=== PATIENT | male | born 1945 | race Caucasian/White ===

== ENCOUNTER → 2016-11-09 | Outpatient (CLI) | payer MEDICARE, OTHER | END | disposition home or self-care (01) | LOC: GMA 14:01 | PROVIDERS: ATTEND Nurse Practitioner Acute Care | DX: R10.13 Epigastric pain (principal) ==

== ENCOUNTER → 2016-11-11 | Outpatient (CLI) | payer MEDICARE, OTHER ==
--- NOTE | 2016-11-11 13:09 | US ---
EXAM DESCRIPTION: Ultrasound Abdomen,Complete CLINICAL HISTORY: EPIGASTRIC PAIN COMPARISON: None Available. TECHNIQUE: Complete abdominal ultrasound FINDINGS: The liver is at the upper limits of normal in size at 15.9 cm. It demonstrates normal echogenicity. There is no focal hepatic mass. The gallbladder contains no sludge, calculus, or polyps. The gallbladder wall measures 2 mm. The common bile duct measures 3 mm. Visualized portions of the pancreas are unremarkable. Portions of the body and tail are not well seen due to bowel gas. The spleen is normal in size, shape, and echotexture. The kidneys are normal in size, shape, and echotexture. The IVC and the proximal aorta are unremarkable. IMPRESSION: 1. Unremarkable ultrasound of the upper abdomen. Electronically signed by: Emery Vides MD 11/11/2016 1:08 PM CDT
== END | disposition home or self-care (01) ==
LOC: US 08:50
PROVIDERS: ATTEND Nurse Practitioner Acute Care
DX: R10.13 Epigastric pain (principal)

== ENCOUNTER → 2016-11-17 | Outpatient (CLI) | payer MEDICARE, OTHER ==
--- NOTE | 2016-11-17 10:12 | CT ---
EXAM DESCRIPTION: Abdoment/Pelvis w/o Contrast CLINICAL HISTORY: 71 years,Male,ABDOMINAL PAIN COMPARISON: None TECHNIQUE: Multiple axial helical tomographic images were obtained of the abdomen and pelvis with out IV or oral contrast and then reconstructed sagittal coronal plane FINDINGS: The unenhanced liver is unremarkable. The spleen is unremarkable. The Pancreas is unremarkable. The adrenal glands are unremarkable. There are two tiny stones in the right kidney mid and lower pole up to 2 mm at most in size nonobstructing. The kidneys are unremarkable. The gallbladder is unremarkable. No free air free fluid masses or adenopathy. The included bowel demonstrates some stool throughout the colon otherwise unremarkable The lung bases are unremarkable. The surrounding soft tissues are unremarkable. The bony elements age appropriate . IMPRESSION: Two tiny new stones lower pole right kidney nonobstructing. Stool throughout the colon, possible constipation. Electronically signed by: Jeff Tejada MD 11/17/2016 10:11 AM CDT
== END | disposition home or self-care (01) ==
LOC: CT 07:45
PROVIDERS: ATTEND Internal Medicine Gastroenterology
DX: R10.84 Generalized abdominal pain (principal)

== ENCOUNTER 2016-12-23 05:45 | Day surgery (SDC) | payer MEDICARE, OTHER ==
[2016-12-23] MEDS ORDERED: LACTATED RINGERS 1,000 ML ONE (06:13)
--- NOTE | 2016-12-23 09:24 | OP ---
DATE OF PROCEDURE: 12/23/16 PREPROCEDURE DIAGNOSIS: 1. Change in bowel habits. 2. Abdominal discomfort. POSTPROCEDURE DIAGNOSIS: 1. Spasm in sigmoid and descending colon, moderately severe. 2. Mild diverticular disease. 3. Ascending colon polyp. PROCEDURE: 1. Colonoscopy to the terminal ileum. 2. Polypectomy. SURGEON: Winston Barrios MD. ANESTHESIA: Monitored anesthesia care. FINDINGS: Digital exam showed normal anal canal with no rectal masses and normal sized prostate. Colon preparation was adequate for examination. The entire colon can be examined to fairly good advantage. Significant spasm in the sigmoid and descending colon area. Opened up with air distention. Mild to moderate diverticulosis in the sigmoid colon area. Very small diverticular openings only. No evidence of stricture, ulceration, or inflammation. Both hepatic and splenic flexures appeared normal. The ascending colon and cecum were reached. The ileocecal valve was visualized. The terminal ileum was intubated. The terminal ileum appeared normal. The cecum was unremarkable. There was a 1.2 cm sized polyp present in the mid ascending colon, longitudinal appearance, sessile. The polyp was removed in two pieces in piecemeal technique. Adequate hemostasis, no bleeding. The polyp was retrieved for pathologic exam. The patient tolerated the procedure well. Reexamination on scope withdrawal showed no abnormality. Total scope withdrawal time was 9 minutes. FINAL IMPRESSION: 1. Spasm in the sigmoid and descending colon. 2. Incidental colonic polyp in the ascending colon, removed, benign. RECOMMENDATION: Surveillance colonoscopy in five years. Colon spasm and minimal diverticular disease may account for change in bowel habits. Increase dietary fiber with Metamucil on daily basis. #[id number] cc: MD Winston Wyatt MD [facility]
[2016-12-23 09:26] VITALS: BP 126/75; TEMP 97.5; O2SAT 99
[2016-12-23] MEDS ORDERED: PROPOFOL 200 MG/20 ML VIAL IV ONE (12:00)
== END 2016-12-23 09:20 | disposition home or self-care (01) ==
LOC: AMB 05:45
PROVIDERS: ATTEND Internal Medicine Gastroenterology
DX: R19.4 Change in bowel habit (principal); R10.13 Epigastric pain; D12.2 Benign neoplasm of ascending colon; K57.30 Diverticulosis of large intestine without perforation or abscess without bleeding; K58.9 Irritable bowel syndrome, unspecified; K21.9 Gastro-esophageal reflux disease without esophagitis; E66.3 Overweight; Z68.25 Body mass index [BMI] 25.0-25.9, adult; Z88.8 Allergy status to other drugs, medicaments and biological substances; Z79.899 Other long term (current) drug therapy
CPT/HCPCS: 00810; 45380; 88305; J3490; J7120

== ENCOUNTER → 2018-07-18 | Outpatient (CLI) | payer MEDICARE, OTHER ==
--- NOTE | 2018-07-18 15:28 | MRI ---
EXAM DESCRIPTION: Lumbar Spine w/o Contrast : Magnetic Resonance Imaging. CLINICAL HISTORY: LUMBAR DISC DISEASE COMPARISON: MRI lumbar spine without contrast 01/12/2013. TECHNIQUE: Multiplanar, multiple standard sequences, non contrast MRI, lumbar spine. FINDINGS: L5-S1: Minimal disc desiccation. Disc space preserved. Posterior elements unremarkable. 2 mm posterior midline disc bulge. Mild canal and bilateral foraminal narrowing. Stable since the prior study. Facets are negative. L4-5: Disc desiccation and mild with disc space preserved. Bilateral flavum ligament hypertrophy. AP canal 10 mm. Asymmetric disc bulge into the left foramen stable since the prior study with moderate narrowing. Mild right foraminal narrowing. Facets are negative. L3-4: Mild disc desiccation with disc space preserved. 3 mm posterior broad-based bulge abutting the thecal sac and the descending L4 nerve roots bilaterally. Bilateral flavum ligament hypertrophy with negative facets. AP canal diameter 8 mm. Mild bilateral foraminal narrowing. L2-3: Disc desiccation with disc space minimally decreased. Posterior broad-based 3 mm disc bulge. Anterior disc bulge with endplate ridging bilateral flavum ligament hypertrophy and mild facet arthrosis. Moderate canal narrowing. Bilateral foramina are patent. L1-2: Normal signal in the disc with disc space preserved. Posterior elements unremarkable. Canal and foramina are patent. T12-L1: Normal signal in the disc with disc space preserved. Canal and foramina are patent. Posterior elements unremarkable. Conus terminates at this level. Anatomic alignment and curvature of the spine Paravertebral soft tissues negative.. Otherwise normal marrow signal in the remaining vertebral bodies and the posterior elements. Vertebral bodies are not compressed at any level. IMPRESSION: 1. Mild disc desiccation L3-4 and posterior bulge. Flavum ligament hypertrophy. Mild central canal stenosis. This has progressed since the prior study. 2. Borderline mild canal stenosis L4-5. Asymmetric disc bulge into the left foramen. Stable since the prior study. Electronically signed by: Kennedy Tatum MD 07/18/2018 3:27 PM [facility]
== END ==
LOC: MRI 10:46
PROVIDERS: ATTEND Family Medicine
DX: M51.27 Other intervertebral disc displacement, lumbosacral region (principal); M51.36 Other intervertebral disc degeneration, lumbar region; Z12.5 Encounter for screening for malignant neoplasm of prostate
CPT/HCPCS: 72148; G0103

== ENCOUNTER → 2018-08-18 | Outpatient (CLI) | payer MEDICARE, OTHER ==
--- NOTE | 2018-08-18 11:22 | RAD ---
EXAM DESCRIPTION: Pelvis CLINICAL HISTORY: 73 years Male, M25.551 RIGHT HIP PAIN COMPARISON: Radiograph of the pelvis dated 06/25/2016. TECHNIQUE: AP radiograph of the pelvis was performed. FINDINGS: The pelvic ring appears grossly intact on this single AP radiograph. No acute fracture or dislocation. Bilateral sacroiliac joints appear normal. Mild degenerative changes are identified in the bilateral hip joints. The visualized lumbo-sacral spine demonstrates mild degenerative changes. IMPRESSION: Single AP radiograph of the pelvis demonstrates grossly intact pelvic ring. Mild bilateral hip osteoarthritis. Electronically signed by: Arlet Archibald MD 08/18/2018 11:20 AM [facility]
== END ==
LOC: RAD 10:01
PROVIDERS: ATTEND Orthopaedic Surgery
DX: M16.0 Bilateral primary osteoarthritis of hip (principal); M25.551 Pain in right hip

== ENCOUNTER → 2019-01-16 | Outpatient (CLI) | payer MEDICARE, OTHER ==
--- NOTE | 2019-01-16 14:43 | MRI ---
MRI right hip without contrast INDICATION: Hip pain muscle rupture TECHNIQUE: Noncontrast MR imaging right hip standard protocol FINDINGS: No regional tendon rupture. No osteonecrosis or fracture. Mild degenerative change anterior superior labrum. Ill-defined ligament teres indicating degeneration. Mild interstitial partial tear and tendinosis of the junction of the gluteus minimus and medius tendons. IMPRESSION: Mild degenerative change glenoid labrum right hip Mild tendinopathy and low-grade partial tear at the junction of the gluteus minimus and medius tendons without complete rupture Otherwise no acute process Electronically signed by: Jorge Disla MD 01/16/2019 2:41 PM CDT
== END ==
LOC: MRI 10:00
PROVIDERS: ATTEND Orthopaedic Surgery
DX: S76.011A Strain of muscle, fascia and tendon of right hip, initial encounter (principal); M16.11 Unilateral primary osteoarthritis, right hip

== ENCOUNTER → 2019-01-31 | Outpatient (CLI) | payer MEDICARE, OTHER ==
--- NOTE | 2019-01-31 09:00 | MRI ---
EXAM DESCRIPTION: Cervical Spine CLINICAL HISTORY: CERVICAL RADICULITIS COMPARISON: None Available. TECHNIQUE: MRI of the cervical spine is performed according to our usual protocol. FINDINGS: Sagittal T2 images reveal decreased signal intensity within the intervertebral discs. Normal T2 appearance of the cervical cord. Posterior discal abnormalities are most prominent at the C3-4 through C6-7 levels. Sagittal T1 images show benign marrow signal characteristics. Normal T1 appearance of the cervical and upper thoracic spinal cord. Normal alignment of the vertebral bodies and facets. Sagittal STIR images are negative for high signal intensity marrow edema within the vertebral bodies or posterior elements. No paraspinous fluid collection or cystic lesion. Axial images were obtained to evaluate the disc levels. C2-3: Normal posterior disc margin with no spinal stenosis or neural foraminal narrowing. Facets appear normal. Normal appearance of the cord at this level. C3-4: Moderate diffuse posterior disc/osteophyte complex mildly narrows the AP diameter of the spinal canal to 8.5 mm. Minimal ventral cord contouring. There is moderate left and severe right neural foraminal narrowing related to uncovertebral joint and facet spurring. Normal signal intensity within the cord at this level. C4-5: Moderately severe posterior disc/osteophyte complex with low signal intensity chronic appearance. Configuration suggests chronic midline broad-based calcified disc protrusion measuring 5 mm in AP dimension and 1.1 cm in mediolateral width. There is compression of the cord with narrowing of the spinal canal to 6 mm. Normal cord signal intensity. There is severe bilateral neural foraminal narrowing related to uncovertebral joint and facet spurring. C5-6: Moderate posterior disc/osteophyte complex narrows the AP diameter of the spinal canal to 7.5 mm. There is mild ventral cord contouring and effacement of CSF anterior and posterior to the cord. Severe left and moderately severe right neural foraminal narrowing is related to uncovertebral joint more than facet spurring. C6-7: Moderate posterior disc/osteophyte complex is seen effacing CSF anterior to the cord. The spinal canal is narrowed to 8 mm in mid sagittal plane with minimal ventral cord contouring. There is severe bilateral neural foraminal narrowing related to uncovertebral joint and facet spurring. C7-T1: Normal posterior disc margin with no spinal stenosis or neural foraminal narrowing. Facets appear normal. Normal appearance of the cord at this level. IMPRESSION: Chronic posterior disc/osteophyte complexes at C3-4 through C6-7 (most severe at C4-5) with spinal stenosis and significant bilateral neural foraminal narrowing as described. Electronically signed by: Mckinley Munroe MD 01/31/2019 8:57 AM CDT
== END ==
LOC: MRI 08:00
PROVIDERS: ATTEND Family Medicine
DX: M54.12 Radiculopathy, cervical region (principal); M25.78 Osteophyte, vertebrae; M48.02 Spinal stenosis, cervical region

== ENCOUNTER → 2019-06-21 | Outpatient (CLI) | payer MEDICARE, OTHER ==
--- NOTE | 2019-06-21 09:20 | MRI ---
EXAM DESCRIPTION: Lumbar Spine w/o Contrast CLINICAL HISTORY: LUMBAR RADICULOPATHY COMPARISON: Previous MRI of the lumbar spine July 18, 2018 TECHNIQUE: MRI of the lumbar spine is performed according to our usual protocol with axial and sagittal multi sequence imaging. FINDINGS: Sagittal T2 images reveal decreased signal intensity consistent with desiccation of the intervertebral discs at all lumbar levels. Congenitally small lumbar spinal canal. Mild posterior annular bulges are present at L2-3 and L3-4. No prevertebral mass or aneurysm. Lower cord and conus appear normal. Tip of the conus is behind T12-L1. Sagittal T1 images reveal benign marrow signal characteristics. Normal T1 signal intensity and appearance of the lower cord and conus. Sagittal STIR images are negative for marrow edema within the vertebral bodies or posterior elements other than artifacts from. Cysts along either side of the spinous process of L4 may be synovial cysts related to facet to or interspinous degenerative joint disease. The largest measures 1.4 cm. Metal artifacts related to spinous processes may be related to interspinous spacers or metal artifact from previous surgery. These findings are new compared the previous study. Clinical correlation recommended. Axial T1 and T2-weighted images were obtained to evaluate the disc levels. T12-L1: No posterior annular bulge or herniation. No spinal stenosis or neural foraminal narrowing. Moderate facet degenerative changes. Normal appearance of the lower cord and conus. L1-2: No posterior annular bulge or herniation. No spinal stenosis. Neural foraminal narrowing is mild. Facets appear hypertrophic. No change compared to previous study. L2-3: Moderate diffuse posterior annular bulge without focal herniation. No significant spinal stenosis. [id number] bilateral neural foraminal narrowing. Facets appear markedly hypertrophic with thickened ligamentum flavum causing moderately severe narrowing of subarticular recess is crowding the descending L3 nerve roots. Similar findings on previous study. L3-4: Moderate diffuse posterior annular bulge with [id number] spinal stenosis. AP diameter of the spinal canal is 1.1 cm. Mediolateral width is narrowed to 7 mm and there is compression of the thecal sac with crowding of the nerve roots. Marked facet hypertrophic changes are seen with ligamentum flavum thickening. Moderately severe left and moderate right subarticular recess narrowing throughout the descending L4 nerve roots. Similar findings are seen on the previous exam. L4-5: Mild diffuse posterior annular bulge without focal herniation. No significant spinal stenosis. Moderate bilateral neural foraminal narrowing related to bulging disc material and facet hypertrophy. Moderate subarticular recess and upper lateral recess narrowing crowding of the descending L5 nerve roots. No change at this level compared to previous study. L5-S1: Mild posterior annular bulge with slight midline accentuation. No spinal stenosis. Mild left neural foraminal narrowing related to bulging disc and marginal osteophyte formation. Moderate facet hypertrophic changes bilaterally. Stable findings at this level compared to previous study. Upper sacrum appears intact. No retroperitoneal mass or aneurysm. IMPRESSION: Moderate multifactorial L3-4 spinal stenosis as described. Electronically signed by: Mckinley Munroe MD 06/21/2019 9:18 AM [facility]
== END ==
LOC: MRI 08:00
PROVIDERS: ATTEND Orthopaedic Surgery
DX: M54.16 Radiculopathy, lumbar region (principal); M48.062 Spinal stenosis, lumbar region with neurogenic claudication

== ENCOUNTER 2019-06-27 05:50 | Day surgery (SDC) | payer MEDICARE, OTHER ==
--- NOTE | 2019-06-26 09:02 | HP ---
CHIEF COMPLAINT: Right hip pain. HISTORY OF PRESENT ILLNESS: Mr. Elias has a long history of pain in the right hip. He has been dealing with this for months. He has had multiple injections into the area of the greater trochanteric region because it seemed like most of his pain was focused there. Those are starting to fail. Because of that, he has requested that we proceed with intraarticular injection. He rates his pain at a 7 on the pain scale. Alleviating factors are occasional anti-inflammatories. Aggravating factors include weightbearing, walking and certain range of motion. He says that the pain does not radiate. He has had treatments that include injections and anti-inflammatories. Because of the failure of those, he has requested injection. After discussing the risks, benefits and alternatives to this, he has given informed consent. PAST SURGICAL HISTORY: None. MEDICATIONS: 1. Hydrocodone. 2. Ambien. PAIN CONTRACT: None. ALLERGIES: NO KNOWN DRUG ALLERGIES. CODE STATUS: DNR. IMMUNIZATIONS: Up to date. SOCIAL HISTORY: The patient does not drink, smoke or use any illicit drugs. FAMILY HISTORY: None pertinent to today's complaint. REVIEW OF SYSTEMS: Negative except as indicated in the History of Present Illness. HEENT: The patient reports no symptoms. RESPIRATORY: The patient reports no symptoms. CARDIOVASCULAR: The patient reports no symptoms. GASTROINTESTINAL: The patient reports no symptoms GENITOURINARY: The patient reports no symptoms. MUSCULOSKELETAL: Negative except as noted in History of Present Illness. SKIN: The patient reports no symptoms. NEUROLOGIC: The patient reports no symptoms. PHYSICAL EXAMINATION: VITAL SIGNS: Blood pressure 152/87. Pulse 78. Height 5'11". Weight 193 pounds. MENTAL STATUS: The patient is awake, alert, and is able to give a good history and participate in the physical. The patient is oriented to person, place and time. SKIN: Normal tone and turgor. MUSCULOSKELETAL: He is extremely tender over the greater trochanteric region. He has intact sensation in the extremity. He has pain with range of motion of the hip, but maintains full flexion. He has internal rotation to abut 20 degrees today with pain after that. The extremity is warm and well perfused. There is no deformity or malalignment. There is no crepitus with range of motion. He walks with a normal gait today. RADIOLOGY: X-rays show no acute bony abnormalities. ASSESSMENT: 1. Hip pain. PLAN: The plan at this point is for intraarticular injection. We have discussed the risks, benefits, and alternatives to that and the patient has given informed consent. #[id number] [facility]
[2019-06-27] MEDS ORDERED: BUPIVACAINE 0.25% INJ 30 ML VIAL INJ ONE (06:57)
[2019-06-27] MEDS ORDERED: methylPREDNISolone ACETATE 80 MG/ML VIAL ONE (06:57)
[2019-06-27] MEDS ORDERED: LIDOCAINE 1% W/ EPINEPHRINE 20 ML VIAL INJ ONE (06:57)
[2019-06-27] MEDS ORDERED: LACTATED RINGERS 1,000 ML ONE (07:03)
[2019-06-27] MEDS ORDERED: LIDOCAINE 1% 10 ML VIAL INJ ONE (10:00)
[2019-06-27] MEDS ORDERED: PROPOFOL 200 MG/20 ML VIAL IV ONE (10:00)
[2019-06-27 10:37] VITALS: TEMP 98.3
[2019-06-27 11:35] VITALS: BP 140/98; O2SAT 99
--- NOTE | 2019-06-27 15:59 | RAD ---
EXAM DESCRIPTION: Fluoroscopy Up to 1Hr CLINICAL HISTORY: RIGHT HIP INJ COMPARISON: AP pelvis dated 18 August 2018 TECHNIQUE: Fluoroscopy time is 8.1 seconds, dose is 1.3 mGy, one spot film. FINDINGS: Fluoroscopy was submitted to perform a right hip injection. IMPRESSION: Right hip injection Electronically signed by: Jeff Howard MD 06/27/2019 3:57 PM [facility]
--- NOTE | 2019-06-28 09:14 | OP ---
DATE OF PROCEDURE: 06/27/19 PREOPERATIVE DIAGNOSIS: 1. Right hip pain. POSTOPERATIVE DIAGNOSIS: 1. Right hip pain. PROCEDURE: 1. Intraarticular injection. SURGEON: Sami Cruz MD. MACHINE I COREMAKER: Kennedy Daniel CST, SA-C. ANESTHESIA: Conscious sedation. COMPLICATIONS: None. FINDINGS: Normal appearing anatomy. INDICATION: Mr. Elias has a long history of hip pain. It has been difficult to localize it although he did initial respond to injections in the lateral aspect of the hip. Unfortunately, it failed to continue to respond and, therefore, we talked about the potential for some intraarticular pathology unidentified on x-ray. After discussing the risks, benefits and alternatives to intraarticular injection, the patient has given informed consent. PROCEDURE: The patient was brought to the Operating Room and placed in supine position. Conscious sedation was administered and the leg was flexed, abducted and externally rotated. The groin was prepped and fluoroscopic imaging was used to confirm needle placement into the hip joint through a medial portal. Once placement had been confirmed, a combination of lidocaine and Depo-Medrol were injected into the joint. After injection, the needle was withdrawn. Pressure was held on the injection site. A sterile band-aid was placed. The patient was then taken back to the Day Surgery Unit. POSTOPERATIVE PLAN: The patient will be weight-bearing as tolerated. The patient will followup with us in 2 weeks. #[id number] [facility]
== END 2019-06-27 11:15 | disposition home or self-care (01) ==
LOC: AMB 05:50
PROVIDERS: ATTEND Orthopaedic Surgery
DX: M16.11 Unilateral primary osteoarthritis, right hip (principal); Z66 Do not resuscitate; Z79.899 Other long term (current) drug therapy
CPT/HCPCS: 01200; 20610; 76000; 80307; J1030; J3490; J7120